=== PATIENT | female | born 1970 | race Caucasian/White ===

== ENCOUNTER → 2020-02-06 | Outpatient (CLI) | payer OTHER ==
[~2020-02-06] MED LIST: HYDR-2763 PO; HYDR12.575 PO; LISD20CA4 PO
[2020-02-06 14:10] LABS: BASO % 0 % (0-3); EOS # 0.1 x10^3/uL (0.0-0.7); EOS % 2 % (0-3); HEMATOCRIT 37.3 % (36.0-47.0); HEMOGLOBIN 12.4 g/dL (12.0-15.5); LYMPH % 37 % (24-48); MEAN CORPUSCULAR HEMOGLOBIN 28 pg (25-35); MEAN CORPUSCULAR HGB CONC 33 g/dL (31-37); MEAN CORPUSCULAR VOLUME 83 fL (79-100); MONO # 0.7 x10^3/uL (0.0-1.1); MONO % 12 % (0-9); NEUT # 2.6 x10^3/uL (1.8-7.7); NEUT % 49 % (31-73); PLATELET COUNT 268 x10^3/uL (140-400); RED BLOOD COUNT 4.48 x10^6/uL (3.50-5.40); RED CELL DISTRIBUTION WIDTH 13.3 % (11.5-14.5); WHITE BLOOD COUNT 5.3 x10^3/uL (4.0-11.0)
[2020-02-06 14:29] LABS: ALBUMIN 3.5 g/dL (3.4-5.0); ALBUMIN/GLOBULIN RATIO 0.9 (1.0-1.7); CALCIUM 9.1 mg/dL (8.5-10.1); CREATININE 0.7 mg/dL (0.6-1.0); GFR 89.3; POTASSIUM 3.8 mmol/L (3.5-5.1); TOTAL BILIRUBIN 0.2 mg/dL (0.2-1.0); TOTAL PROTEIN 7.5 g/dL (6.4-8.2)
--- NOTE | 2020-02-08 12:57 | NUR ---
IP: Notified Dr. Medina Goff concerning patients positive COVID results. Dr. Goff will postpone surgery x 3 weeks and will notify patient of need to quarantine.
== END ==
LOC: SURGPAT 12:45
PROVIDERS: ATTEND Obstetrics & Gynecology
DX: U07.1 COVID-19 (principal); Z01.812 Encounter for preprocedural laboratory examination
CPT/HCPCS: 80053; 85025; U0003

== ENCOUNTER → 2020-06-04 | Outpatient (CLI) | payer OTHER ==
[~2020-06-04] MED LIST changes: +ALPR0.5T PO; +ONDA4TAB12 PO; +PHEN37.599 PO; +RIZA10TA91 PO; +SUMA100T4 PO
[2020-06-04 12:44] LABS: BASO % 1 % (0-3); EOS # 0.1 x10^3/uL (0.0-0.7); EOS % 1 % (0-3); HEMATOCRIT 38.6 % (36.0-47.0); HEMOGLOBIN 13.3 g/dL (12.0-15.5); LYMPH % 21 % (24-48); MEAN CORPUSCULAR HEMOGLOBIN 29 pg (25-35); MEAN CORPUSCULAR HGB CONC 34 g/dL (31-37); MEAN CORPUSCULAR VOLUME 83 fL (79-100); MONO # 0.6 x10^3/uL (0.0-1.1); MONO % 6 % (0-9); NEUT # 6.8 x10^3/uL (1.8-7.7); NEUT % 71 % (31-73); PLATELET COUNT 323 x10^3/uL (140-400); RED BLOOD COUNT 4.64 x10^6/uL (3.50-5.40); RED CELL DISTRIBUTION WIDTH 13.5 % (11.5-14.5); WHITE BLOOD COUNT 9.6 x10^3/uL (4.0-11.0)
[2020-06-04 13:01] LABS: ALBUMIN 3.6 g/dL (3.4-5.0); ALBUMIN/GLOBULIN RATIO 0.9 (1.0-1.7); CREATININE 0.9 mg/dL (0.6-1.0); GFR 66.8; POTASSIUM 3.8 mmol/L (3.5-5.1); TOTAL BILIRUBIN 0.4 mg/dL (0.2-1.0); TOTAL PROTEIN 7.8 g/dL (6.4-8.2)
[2020-06-04 13:37] LABS: BILIRUBIN,URINE MODERATE (NEG); CLARITY,URINE CLOUDY; COLOR,URINE RED; NITRITE,URINE NEGATIVE (NEG); PH,URINE 5.5 (<5.0-8.0); PROTEIN,URINE 100 mg/dL (NEG-TRACE); UROBILINOGEN,URINE 0.2 mg/dL (0.2 mg/dL)
[2020-06-04 13:51] LABS: RBC,URINE TNTC /HPF (0-2)
[2020-06-04 13:52] LABS: BACTERIA,URINE 0 /HPF (0-FEW); WBC,URINE >40 /HPF (0-4)
== END ==
LOC: SURGPAT 11:50
PROVIDERS: ATTEND Obstetrics & Gynecology
DX: Z01.812 Encounter for preprocedural laboratory examination (principal); Z20.822 Contact with and (suspected) exposure to COVID-19
CPT/HCPCS: 80053; 81001; 85025; 87086; U0003

== ENCOUNTER 2020-06-10 06:13 | Observation (INO) | payer OTHER ==
[2020-06-10] VITALS (10 sets, daily range): BP systolic 88–102; BP diastolic 55–64
[~2020-06-10] VITALS: Ht 162.6 cm; Wt 66.8 kg
[~2020-06-10 06:13] MED LIST changes: +CLINDAMYCIN 900MG PREMIX 50 ML IV PRN; +IV RINGERS,LACTATED 1000ML 1,000 ML IV SCH; +PROCHLORPERAZINE 10 MG/2 ML VIAL. IVP PRN; +fentaNYL PF VIAL 100 MCG/2 ML VIAL IVP PRN
[2020-06-10] MEDS ORDERED: BUPIVACAINE-EPI 0.25% 30 ML VIAL KIT. ONE (06:56)
[2020-06-10] MEDS ORDERED: ESTROGENS, CONJ VAGINAL CREAM 30GM TUBE. ONE (06:56)
[2020-06-10] MEDS ORDERED: INDIGOTINDISULFONATE SODIUM 40 MG/5 ML AMPUL. ONE (06:57)
[2020-06-10] MEDS ORDERED: SCOPOLAMINE 1.5MG PATCH. TD SCH (06:58)
[2020-06-10] MEDS ORDERED: fentaNYL PF VIAL 100 MCG/2 ML VIAL ONE ×3 (06:59→09:44)
[2020-06-10] MEDS ORDERED: SEVOFLURANE > 120 MINUTES. IH ONE ×2 (06:59→09:38)
[2020-06-10] MEDS ORDERED: MIDAZOLAM HCL/PF 2 MG/2 ML VIAL. ONE (06:59)
[2020-06-10] MEDS ORDERED: ROCURONIUM 50 MG/5 ML VIAL. ONE (06:59)
[2020-06-10] MEDS ORDERED: DEXAMETHASONE SOD PHOS 4 MG/ML VIAL ONE (07:04)
[2020-06-10] MEDS ORDERED: LIDOCAINE 2% PF 5 ML VIAL. ONE (07:04)
[2020-06-10] MEDS ORDERED: PROPOFOL 10 MG/ML (20ML) VIAL. IV ONE (07:04)
[2020-06-10] MEDS ORDERED: ONDANSETRON PF 4 MG/2 ML VIAL. ONE ×2 (07:04→09:02)
[2020-06-10] MEDS ORDERED: FAMOTIDINE 20 MG/2 ML VIAL ONE ×2 (07:04→08:04)
[2020-06-10] MEDS ORDERED: PHENYLEPHRINE in 0.9% NACL PF 1 MG/10 ML SYRINGE. IV ONE (08:04)
[2020-06-10] MEDS ORDERED: ePHEDrine PF IN SALINE 50 MG/10 ML SYRINGE. IV ONE (08:04)
[2020-06-10] MEDS ORDERED: GLYCOPYRROLATE 1 MG/5 ML VIAL. ONE (08:05)
[2020-06-10] MEDS ORDERED: NEOSTIGMINE METHYLSULFATE 5 MG/5 ML SYRINGE. ONE (09:00)
--- NOTE | 2020-06-10 09:35 | PDOC ---
BRIEF OPERATIVE NOTE Date: Jun 10, 2020 Pre-Op Diagnosis menorrhagia and dysmenorrhea with fibroid uterus Post-Op Diagnosis same plus endometriosis Procedure Performed LAVH/BSO Surgeon Dr. Madeleine Goff Mantel Craftsman DINA Brown Anesthesiologist Dr. Presley Anesthesia Type: General Blood Loss 25cc IV Fluid 1400cc Urine Output 80cc clear via mathias Specimens Obtained cervix, uterus, bialteral tubes and ovaries Findings enlarged fibroid uterus, endometriosis on both pelvic sidewalls, bowel adhesions to left sidewall Complications none Operative Note [id number] MADELEINE GOFF MD Jun 10, 2020 09:35
[2020-06-10] MEDS ORDERED: ESTRADIOL WEEKLY 0.1 MG PATCH. TD ONE ×2 (09:44→11:15)
[2020-06-10] MEDS ORDERED: diphenhydrAMINE HCL 25 MG CAPSULE PO PRN (09:45)
[2020-06-10] MEDS ORDERED: diphenhydrAMINE 50 MG/ML VIAL IV PRN (09:45)
[2020-06-10] MEDS ORDERED: ZOLPIDEM 5 MG TABLET. PO PRN (09:45)
[2020-06-10] MEDS ORDERED: HYDROcodone/APAP 5/325MG 1 TAB TABLET PO PRN (09:45)
[2020-06-10] MEDS ORDERED: NALOXONE 0.4 MG/ML VIAL. IV PRN (09:45)
[2020-06-10] MEDS ORDERED: 0.9 % SODIUM CHLORIDE 10 ML DISP.SYRIN. IV PRN (09:45)
[2020-06-10] MEDS ORDERED: MORPHINE SULFATE 2 MG/ML VIAL. IV PRN (09:45)
[2020-06-10] MEDS ORDERED: CALCIUM CARBONATE 500 MG TAB.CHEW PO PRN (09:45)
[2020-06-10] MEDS ORDERED: MAGNESIUM HYDROXIDE 2,400 MG/30 ML ORAL.SUSP. PO PRN (09:45)
[2020-06-10] MEDS ORDERED: MAG HYDROX/ALUMINUM HYD/SIMETH 30 ML ORAL.SUSP PO PRN (09:45)
[2020-06-10] MEDS ORDERED: LACTULOSE 20 GM/30 ML SOLUTION. PO PRN (09:45)
[2020-06-10] MEDS ORDERED: ONDANSETRON PF 4 MG/2 ML VIAL. IV PRN (09:45)
[2020-06-10] MEDS ORDERED: SIMETHICONE 80 MG TAB.CHEW PO PRN (09:45)
--- NOTE | 2020-06-10 09:53 | OP ---
DATE OF SURGERY: 06/10/2020 PREOPERATIVE DIAGNOSES: Menorrhagia and dysmenorrhea with a fibroid uterus. POSTOPERATIVE DIAGNOSES: Menorrhagia and dysmenorrhea with a fibroid uterus plus endometriosis seen on laparoscopy. PROCEDURE: Laparoscopic-assisted vaginal hysterectomy and bilateral salpingo-oophorectomy. SURGEON: Radha Goff MD BULB WEEDER: DINA Brown ANESTHESIOLOGIST: Keenan Presley MD ANESTHESIA: General. ESTIMATED BLOOD LOSS: 25 mL. URINE OUTPUT: 80 mL clear via Anderson catheter. INTRAVENOUS FLUIDS: 1400 mL of Crystalloid. SPECIMENS: Cervix, uterus, bilateral tubes and ovaries. FINDINGS: An enlarged fibroid uterus, endometriosis seen on both pelvic sidewalls, bowel adhesions to the left side wall. COMPLICATIONS: None. DESCRIPTION OF PROCEDURE: This patient was taken to the operating room where general anesthesia was placed. The [facility] The patient's abdomen and vagina were prepped and draped in the normal sterile fashion and a Anderson catheter had been inserted under sterile technique. Upon my arrival, a timeout was performed. Once everyone agreed on the patient, the site, the procedure, the antibiotics, the procedure was initiated. A bivalve speculum was placed in the patient's vagina. A single-tooth tenaculum was used to grasp the anterior lip of the cervix. 10 mL of 0.25% Marcaine with epinephrine was used to circumferentially inject around the cervix for both hemodissection and hemostatic purposes later. The Valtchev uterine manipulator was placed through the endocervical os, locked on the single tooth tenaculum and the bivalve speculum was then removed. Top gloves were discarded and changed. Attention was then turned to the abdomen where a small infraumbilical skin incision was made over her existing scar. A curved Amira was used to dissect through the subcuticular layer to the fascia. The 5 mm Visiport was used to directly into the abdominal cavity. Opening patient pressure was 3-4 mmHg. Carbon dioxide gas was used to then appropriately insufflate the abdominal cavity to maintain a pressure of 15 mmHg. Overhead lights were dimmed. The patient was placed in Trendelenburg position. Right and left lower quadrant ports were placed after transilluminating the abdominal wall, finding an area clear of any vasculature, making a small incision and placing the 5 mm disposable port in under direct visualization. 4-5 mL of air was placed in the trocar cuff. The camera was moved to one of the lateral ports to check the umbilical port. Once it was in place as well, it was also insufflated with the 4-5 mL of air in the trocar cuff. At this point, there was noted to be some left-sided colon bowel adhesions to the sidewall, but they were high enough and out of our way that we did not touch these. The left tube and ovary were elevated. Under the left ovary on the pelvic sidewall, there was a large blue spot of endometriosis. Under the right side on the right ureter in the pelvis, there was another spot of endometriosis. The patient did desire to have everything removed. So, we started on the left side, tube and ovary were elevated. Finding the ureter course low in the pelvis, watching it peristalsed. We went high on the IP ligament, using the LigaSure, taking the left tube and ovary per patient request, cauterizing and cutting with the LigaSure. Then crossing the left round ligament, cauterizing and cutting, this was done exactly the same on the right side, elevating the right tube and ovary identifying the ureter and watching it peristalsed low in the pelvis, staying high on the infundibulopelvic ligament, cauterizing and cutting with the LigaSure, going over towards the uterus, taking the tube and ovary and then crossing the right round ligament, cauterizing and cutting it. The uterus was then straightened and pushed straight cephalad and flattened and the bladder flap was grasped with the [place] and the monopolar hook was used as a hot knife to go across and create that bladder flap and pull it down as well. Once the bladder was down the right side, we got the uterine vessels with the LigaSure and then hugging and staying posterior on the uterus, staying inside that pedicle, going through the cardinal and broad ligaments down to the uterosacrals on the right side and then crossing the left side as well, getting the uterines and staying inside that pedicle, hugging a straight vertical on the cervix, going through the cardinal and broad ligaments down to the uterosacral. There were no posterior adhesions. Everything was free anteriorly. The bladder was completely down. The uterus was blanched. All instruments were removed and it was decided to go vaginally. The single tooth and Valtchev were removed. A weighted speculum was placed in the patient's vagina. Thyroid Pao clamps were placed on the anterior and posterior lips of the cervix respectively. A scalpel was used to make a circumferential incision in the cervix. The bladder was taken off sharply and bluntly, first with the scalpel using the plastic blunt end of the suction tip to gently push up the bladder and peel it off the cervix and then using an open Ray-Isak 4 x 4 to gently push up once it had been released and entering the anterior cul-de-sac. The 4 x 4 was removed and the curved Trey was placed in the anterior cul-de-sac. The cervix was elevated and the posterior cul-de-sac was sharply entered with the curved Willett scissors. A #0 Vicryl stitch was used to secure the posterior peritoneum here to the vaginal cuff. It was tagged with a curved Amira clamp and the needle was cut and passed off. The short weighted vaginal speculum was removed and replaced in the posterior cul-de-sac with the long weighted Faustino speculum. At this point, curved Baldev clamps x 2 were placed on the patient's left uterosacral ligament where they were doubly clamped with curved Heaneys, cut with curved Willett scissors and suture ligated x 2 with 0 Vicryl. Second one was taken through the vaginal cuff securing uterosacral ligament to the vaginal cuff, tagging it with a straight Amira clamp, cutting and passing the needle off. This was all done exactly the same on the right side, double clamping the uterosacrals with curved Baldev's, cutting with curved Willett scissors, suture ligating x 2 with 0 Vicryl, taking the second one through the vaginal cuff, tagging it with a straight Amira clamp, cutting and passing the needle off. The remaining pedicle on both sides was delineated with the curved right angle Mixter clamp and the vaginal LigaSure was used to cauterize and cut the remaining pedicle. Cervix, uterus, bilateral tubes and ovaries were passed off in total for permanent pathology. Sponge stick was used to examine the pedicles once they were assured to be dry. The anterior bladder peritoneum was grasped with a long Allis. The long Faustino speculum was removed and replaced with the short weighted vaginal speculum. A 2-0 Vicryl was taken through the anterior bladder peritoneum, left uterosacral ligament, posterior peritoneum and right uterosacral ligament, thus closing the peritoneum in a pursestring like fashion. Once this was done, the right and left uterosacral tags were clipped and the cuff was closed in an anterior to posterior running locked fashion with a full length 2-0 Vicryl and tied to that posterior cuff tag. Once this was done, the cuff was reexamined. It was hemostatic. All the vaginal instruments had been correct x 2 by OR personnel. So, all gloves were discarded and changed and attention was turned back above for a second look. The patient was placed back in Trendelenburg. Gas was reinsufflated. Overhead lights were dimmed again. Copious irrigation revealed hemostasis. The right and left pericolic gutters were clear. The pelvis remained dry. Clear fluid returned on irrigation. Once this was done, Tisseel was placed over the pedicles with excellent results. The right and left lower quadrant ports, the 4-5 mL of air was taken out of the trocar cuff. They were removed under direct visualization. They were hemostatic. Gas was released from the umbilical port. It was also deflated on the cuff part and then it was removed. All three port sites were closed with 4-0 nylon at the skin and injected with local at the end. The patient is currently being awakened from anesthesia. RADHA GOFF MD DR: ELIZABETH/ninoska JOB#: [id number] / [id number]
[2020-06-10] MEDS ORDERED: ESTRADIOL WEEKLY 0.1 MG PATCH. TD SCH (10:00)
[2020-06-10] MEDS: fentaNYL PF VIAL 100 MCG/2 ML VIAL IVP PRN ×2 (10:05→10:16)
[2020-06-10] MEDS ORDERED: HYDROmorphone 2 MG/ML VIAL IV PRN ×2 (10:30)
[2020-06-10] MEDS ORDERED: MORPHINE SULFATE 2 MG/ML VIAL. IVP PRN (10:30)
[2020-06-10] MEDS ORDERED: PROCHLORPERAZINE 10 MG/2 ML VIAL. ONE (10:36)
[2020-06-10] MEDS ORDERED: HYDROmorphone 2 MG/ML VIAL ONE (10:44)
[2020-06-10] MEDS: oxyCODONE/APAP 5/325 1 TAB TABLET PO PRN ×3 (14:06→22:29)
[2020-06-11 01:25] VITALS: BP 90/47
[2020-06-11] MEDS: oxyCODONE/APAP 5/325 1 TAB TABLET PO PRN ×2 (02:32→09:08)
[2020-06-11 05:15] VITALS: BP 91/61
[2020-06-11 08:07] LABS: CALCIUM 8.2 mg/dL (8.5-10.1); GFR 59.2; POTASSIUM 3.8 mmol/L (3.5-5.1)
--- NOTE | 2020-06-11 08:58 | PDOC ---
SURGICAL PROGRESS NOTE DATE: 06/11/20 TIME: 08:54 Subjective Pt awake eating breakfast upon exam. Ambulating well, voiding without catheter, small VB with urination and tolerating regular diet. Vital Signs Vital Signs Date Time Temp Pulse Resp B/P (MAP) Pulse Ox O2 Delivery O2 Flow Rate FiO2 06/11/20 05:15 97.2 64 18 91/61 (71) 98 97.2 06/11/20 02:32 2.0 06/11/20 01:25 Room Air I&O Intake and Output 06/11/20 07:00 Intake Total 4168 ml Output Total 500 ml Balance 3668 ml Intake Oral 650 ml IV Total 2618 ml Blood Product IV Normal Saline Flush 900 ml Output Urine Total 480 ml Estimated Blood Loss 20 ml PATIENT HAS A ZAMORA: No General: Alert, Oriented X3, Cooperative, No acute distress HEENT: Atraumatic Heart: Regular rate Abdomen: Soft, No tenderness, Other (all port sites c/d/i) Extremities: No clubbing, No cyanosis, No edema Skin: No rashes, No breakdown Neuro: Normal speech Psych/Mental Status: Mental status NL, Mood NL Labs Laboratory Tests Test 06/10/20 05:28 06/11/20 07:20 Bedside Urine HCG, Qualitative Hcg negative (Negative) Hematocrit 31.5 % (36.0-47.0) Sodium Level 140 mmol/L (136-145) Potassium Level 3.8 mmol/L (3.5-5.1) Chloride Level 104 mmol/L (98-107) Carbon Dioxide Level 29 mmol/L (21-32) Anion Gap 7 (6-14) Blood Urea Nitrogen 10 mg/dL (7-20) Creatinine 1.0 mg/dL (0.6-1.0) Estimated GFR (Cockcroft-Gault) 59.2 Glucose Level 88 mg/dL (70-99) Calcium Level 8.2 mg/dL (8.5-10.1) Laboratory Tests Test 06/11/20 07:20 Hematocrit 31.5 % (36.0-47.0) Sodium Level 140 mmol/L (136-145) Potassium Level 3.8 mmol/L (3.5-5.1) Chloride Level 104 mmol/L (98-107) Carbon Dioxide Level 29 mmol/L (21-32) Anion Gap 7 (6-14) Blood Urea Nitrogen 10 mg/dL (7-20) Creatinine 1.0 mg/dL (0.6-1.0) Estimated GFR (Cockcroft-Gault) 59.2 Glucose Level 88 mg/dL (70-99) Calcium Level 8.2 mg/dL (8.5-10.1) I have reviewed the following labs, vitals, nursing Cardiovascular: No pertinent hx Pulmonary: No pertinent hx GI: No pertinent hx Assessment/Plan POD#1 s/p LAVH/BSO Routine PO care d/c to home later today NPV x 6 weeks light/limited activity x 2 weeks Narcotic pain med written OK for Ibuprofen/naproxen OTC as well as needed NO driving on narcotic meds or at least one week keep scheduled office follow up with me in one week Call or return sooner for any other questions or concerns not limited to but including pain unrelieved with pain meds, increased or unexplained VB or T>100.4 Justicifation of Admission Dx: Justifications for Admission: Justification of Admission Dx: Yes RADHA FRITZ MD Jun 11, 2020 08:58
--- NOTE | 2020-06-11 09:00 | PDOC3 ---
Discharge Summary Visit Information Date of Admission: Jun 10, 2020 Date of Discharge: Jun 11, 2020 Admitting Diagnosis Comment: menorrhagia and fibroids Final Diagnosis same plus endometriosis Brief Hospital Course Allergies Allergies Coded Allergies Type Severity Reaction Last Updated Verified Penicillins Allergy Intermediate Anxiety 06/10/20 Yes aspirin Allergy Intermediate 06/10/20 Yes tramadol Allergy Intermediate Rash 06/10/20 Yes Vital Signs Vital Signs Date Time Temp Pulse Resp B/P (MAP) Pulse Ox O2 Delivery O2 Flow Rate FiO2 06/11/20 05:15 97.2 64 18 91/61 (71) 98 97.2 06/11/20 02:32 2.0 06/11/20 01:25 Room Air Lab Results Laboratory Tests Test 06/10/20 05:28 06/11/20 07:20 Bedside Urine HCG, Qualitative Hcg negative (Negative) Hematocrit 31.5 % (36.0-47.0) Sodium Level 140 mmol/L (136-145) Potassium Level 3.8 mmol/L (3.5-5.1) Chloride Level 104 mmol/L (98-107) Carbon Dioxide Level 29 mmol/L (21-32) Anion Gap 7 (6-14) Blood Urea Nitrogen 10 mg/dL (7-20) Creatinine 1.0 mg/dL (0.6-1.0) Estimated GFR (Cockcroft-Gault) 59.2 Glucose Level 88 mg/dL (70-99) Calcium Level 8.2 mg/dL (8.5-10.1) Laboratory Tests Test 06/11/20 07:20 Hematocrit 31.5 % (36.0-47.0) Sodium Level 140 mmol/L (136-145) Potassium Level 3.8 mmol/L (3.5-5.1) Chloride Level 104 mmol/L (98-107) Carbon Dioxide Level 29 mmol/L (21-32) Anion Gap 7 (6-14) Blood Urea Nitrogen 10 mg/dL (7-20) Creatinine 1.0 mg/dL (0.6-1.0) Estimated GFR (Cockcroft-Gault) 59.2 Glucose Level 88 mg/dL (70-99) Calcium Level 8.2 mg/dL (8.5-10.1) Brief Hospital Course Ms. Arenas is a 49 old female who presented with menorrhagia, dysmenorrhea and enlarged fibroid uterus. She underwent an LAVH/BSO yesterday without complication and was also found to have endometriosis. She has had an unremarkable postoperative course and is AFVSS, ambulating well, tolerating regular diet and will be discharged to home later today Assessment Assessment POD#1 s/p LAVH/BSO Routine PO care d/c to home later today NPV x 6 weeks light/limited activity x 2 weeks Narcotic pain med written OK for Ibuprofen/naproxen OTC as well as needed NO driving on narcotic meds or at least one week keep scheduled office follow up with me in one week Call or return sooner for any other questions or concerns not limited to but including pain unrelieved with pain meds, increased or unexplained VB or T>100.4 Discharge Information Condition at Discharge: Stable Follow Up: Weeks Disposition/Orders: D/C to Home Scheduled Hydrochlorothiazide (Hydrochlorothiazide Capsule ) 12.5 Mg Capsule, 12.5 MG PO DAILY for DIURETIC, Ref 0 (Reported) Entered as Reported by: JENNYFER ANNE on 02/06/20 1314 Last Taken: Unknown Dose on 06/02/20 Last Action: Reviewed on 06/10/20 0645 by RUPAL HURT Ondansetron (Ondansetron Odt) 4 Mg Tab.rapdis, 1 TAB PO PRN Q6-8HRS for nausea, #16 (Reported) Entered as Reported by: RUPAL HURT on 06/04/20 1235 Last Taken: Unknown Dose on 06/02/20 Last Action: Reviewed on 06/10/2045 by RUPAL HURT Phentermine Hcl (Adipex-P) 37.5 Mg Capsule, 1 CAP PO DAILY for energy MDD 1 Capsule(s) for 30 Days, #30 Ref 0 (Reported) Entered as Reported by: RUPAL HURT on 06/04/20 1235 Last Taken: Unknown Dose on 06/01/20 Last Action: Reviewed on 06/10/20644 by RUPAL HURT Rizatriptan Benzoate (Rizatriptan) 10 Mg Tab.rapdis, 10 MG PO BID for migraines, (Reported) Entered as Reported by: RUPAL HURT on 06/04/20 1305 Last Taken: Unknown Dose on 06/02/20 Last Action: Reviewed on 06/10/2045 by RUPAL HURT Scheduled PRN Alprazolam (Xanax) 0.5 Mg Tablet, 1 TAB PO TID PRN for ANXIETY / AGITATION, #90 (Reported) Entered as Reported by: RUPAL HURT on 06/04/20 1238 Last Taken: Unknown Dose on 06/02/20 Last Action: Reviewed on 06/10/20 0645 by RUPAL HURT Hydrocodone/Acetaminophen (Hydrocodone-Acetamin 7.5-325) 1 Each Tablet, 1 EACH PO Q6HRS PRN for PAIN for 1 Days, #4 (Reported) Entered as Reported by: JENNYFER ANNE on 02/06/20 1314 Last Taken: Unknown Dose on 06/02/20 Last Action: Reviewed on 06/10/20 0645 by RUPAL HURT Patient Instructions Patient Instructions POD#1 s/p LAVH/BSO Routine PO care d/c to home later today NPV x 6 weeks light/limited activity x 2 weeks Narcotic pain med written OK for Ibuprofen/naproxen OTC as well as needed NO driving on narcotic meds or at least one week keep scheduled office follow up with me in one week Call or return sooner for any other questions or concerns not limited to but including pain unrelieved with pain meds, increased or unexplained VB or T>100.4 Justicifation of Admission Dx: Justifications for Admission: Justification of Admission Dx: Yes RADHA FRITZ MD Jun 11, 2020 09:00
[2020-06-11 09:22] VITALS: BP 93/61
--- NOTE | 2020-06-11 10:29 | NUR ---
Pt. discharges at this time, and belongings accompany pt. pt. leaves via wheelchair, VSS. Discharge instructions given to pt. IV DC'd
--- NOTE | 2020-06-11 18:07 | PATHOLOGY ---
[facility] Accession Number: [id number] . 01 Material submitted: . uterus - CERVIX,UTERUS,BOTH TUBES AND OVARIES . 01 Clinical history: . MENORRHAGIA LAVH BSO URINARY FREQUENCY, DYSMEN . 02 Diagnosis: Uterus and attached bilateral fallopian tubes and ovaries, laparoscopic assisted vaginal hysterectomy with bilateral salpingo-oophorectomy: - Adenomyosis, uterine corpus, with mild myometrial hypertrophy. - Chronic cervicitis with focal squamous metaplasia. - Nabothian cysts, cervix, several. - Proliferative endometrium. - Leiomyomas (2), uterine corpus, small, measuring up to 0.3 cm. - Congestion of bilateral fallopian tubes. - Few capsular adhesions of bilateral ovaries, with focal stromal deciduoid change. - Hemorrhagic luteinized cyst and simple cyst of right ovary. (JPM:eric; 06/11/2020) [facility] 06/11/2020 1758 Local . 02 Comment: There is no atypia or evidence of malignancy. (JPM:eric; 06/11/2020) . 02 Electronically signed: . Rogelio Solano MD, Pathologist NPI- [id number] . 01 Gross description: . The specimen is received in formalin, labeled "Theresa Arenas uterus cervix both tubes and ovaries" and consists of an 129 grams specimen received as hysterectomy specimen with symmetrical attached adnexae. The right and left fallopian tubes average 8.1 cm in length and 0.6 cm in diameter; each unremarkable on sectioning. The right ovary measures 3 x 1.7 x 1.2 cm and is solid to cystic with the cyst being hemorrhagic measuring up to 0.5 cm without papillary excrescences. The left ovary measures 3 x 1.5 x 1 cm and is unremarkable. The anterior surface is inked blue and the posterior surface inked black. The uterus measures 7.8 cm superior to inferior; 5.7 cm transversely and; 6.1 cm anterior to posterior. The cervix measures 3.2 cm in length and 3.1 cm in diameter. The ectocervical mucosa is unremarkable. The os measures 0.7 cm. On opening, the squamo-columnar junction is well visualized and has an unremarkable cervix. The endometrial cavity measures 4 x 3.2 cm and is lined by smooth endometrium measuring up to 0.1 cm. The myometrium is trabecular and does contain myometrial nodules ranging from 0.1-0.3 cm. The myometrium ranges from 2.5-3.7 cm in thickness. Pigment Making Supervisor sections are submitted in 10 cassettes as follows: A1-2 Right adnexa including entire fimbriated end A3-4 Left adnexa including entire fimbriated end A5 Anterior cervix A6 Posterior cervix A7 Anterior wall A8 Posterior wall A9-10 Myometrium ALDA/ALDA 06/11/2020 1631 Local . 02 Pathologist provided ICD-10: N80.0, N72, D25.9, N83.291 . 02 CPT . 689560 Specimen Comment: A courtesy copy of this report has been sent to [phone], [phone] Specimen Comment: [id number] Specimen Comment: Report sent to / DR BERRY Performed at: 01 [facility] [address] [facility] [address], [place] [id number] MD Anirudh Venegas MD Phone: [phone] Performed at: 02 [facility] [address] [place], [place] [id number] MD Rogelio Solano MD Phone: [phone]
[2020-06-17] MEDS ORDERED: ESTRADIOL WEEKLY 0.1 MG PATCH. TD SCH (09:00)
== END 2020-06-11 10:28 | disposition home or self-care (01) ==
LOC: SURG 06:13 → 3 SO LND 09:40
PROVIDERS: ADMIT Obstetrics & Gynecology; ATTEND Obstetrics & Gynecology
DX: N92.0 Excessive and frequent menstruation with regular cycle (principal); N80.9 Endometriosis, unspecified; N94.6 Dysmenorrhea, unspecified; D25.9 Leiomyoma of uterus, unspecified; K66.0 Peritoneal adhesions (postprocedural) (postinfection); N80.1 Endometriosis of ovary
CPT/HCPCS: 36415; 58552; 80048; 81025; 85014; 86850; 86900; 86901; 96360; 96361; G0378; G0379; J0780; J1100; J1170; J1956; J2250; J2270; J2370; J2704; J2710; J3010; J3480; J3490; 88307; A4223; A4314; A4657; A4930; A6219; J2405